=== PATIENT | female | born 1945 | race Caucasian/White ===

== ENCOUNTER 2017-09-29 07:28 | Emergency (ER) | payer BC, MEDICARE ==
[2017-09-29 07:53] VITALS: BP 106/58
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
== END 2017-09-29 08:45 | disposition home or self-care (01) ==
LOC: UCCORT 07:28
DX: J02.9 Acute pharyngitis, unspecified (principal); Z88.5 Allergy status to narcotic agent
CPT/HCPCS: 87070; 87077; 87651; 99201; G0463

== ENCOUNTER 2018-11-06 12:33 | Emergency (ER) | payer BC, MEDICARE, OTHER ==
[2018-11-06 12:54] VITALS: BP 109/60
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
== END 2018-11-06 13:13 | disposition home or self-care (01) ==
LOC: UCCORT 12:33
DX: S80.01XA Contusion of right knee, initial encounter (principal); V49.40XA Driver injured in collision with unspecified motor vehicles in traffic accident, initial encounter; Y92.410 Unspecified street and highway as the place of occurrence of the external cause
CPT/HCPCS: 99211; G0463